=== PATIENT | male | born 1965 | race Caucasian/White ===

== ENCOUNTER 2024-07-13 19:54 | Emergency (ER) | payer MEDICAID ==
[2024-07-13] MEDS ORDERED: Sodium Chloride 0.9% 10 ML Syringe FLUSH PRN (20:09)
[2024-07-13] MEDS: Morphine 4 MG/ML VIAL IVPUSH ONE (20:24)
[2024-07-13] MEDS: Sodium Chloride 0.9% 1,000 ML IV SCH (20:26)
[2024-07-13] MEDS ORDERED: Naloxone 0.4 MG/ML SDV IVPUSH PRN (20:36)
[2024-07-13 20:44] LABS: BASOPHILS ABSOLUTE AUTO 0.1 x10-3/uL (0.0-0.3); BASOPHILS PERCENT AUTO 1.1 % (0.3-3.8); EOSINOPHILS ABSOLUTE AUTO 0.4 x10-3/uL (0.0-0.6); EOSINOPHILS PERCENT AUTO 7.7 % (0.1-6.8); HEMOGLOBIN 13.5 g/dL (12.9-17.7); LYMPHOCYTES ABSOLUTE AUTO 1.4 x10-3/uL (0.5-4.5); LYMPHOCYTES PERCENT AUTO 26.8 % (15.8-45.3); MEAN CORPUSCULAR HEMOGLOBIN 29.4 pg (27.0-33.3); MEAN CORPUSCULAR HGB CONC 33.7 g/dL (28.7-35.3); MEAN CORPUSCULAR VOLUME 87.2 fL (80.8-98.7); MEAN PLATELET VOLUME 9.3 fL (6.7-11.0); MONOCYTES ABSOLUTE AUTO 0.5 x10-3/uL (0.0-1.2); MONOCYTES PERCENT AUTO 8.8 % (5.5-15.2); NEUTROPHILS PERCENT AUTO 55.6 % (40.3-71.8); PLATELET COUNT,PLT 159 x10(3)uL (117-477); RED BLOOD CELL COUNT 4.59 x10(6)uL (3.90-5.90); WHITE BLOOD CELL COUNT,WBC 5.4 x10-3/uL (3.2-10.1)
[2024-07-13] MEDS: Ondansetron 4 MG/2 ML SDV IVPUSH ONE (20:45)
[2024-07-13 20:47] LABS: BLOOD UREA NITROGEN,BUN 9 mg/dL (7-18); BUN/CREATININE RATIO 8.2 (9-20); CALCIUM 9.7 mg/dL (8.6-10.2); CARBON DIOXIDE,CO2 26 mmol/L (21-32); CHLORIDE,CL 98 mmol/L (100-110); CREATININE 1.1 mg/dL (0.70-1.30); ESTIMATED GFR 77 mL/min (>60); GLUCOSE RANDOM 201 mg/dL (80-116); POTASSIUM,K 3.7 mmol/L (3.5-5.3); SODIUM,NA 135 mmol/L (135-145)
[2024-07-13] MEDS: HYDROmorphone 2 MG/ML SDV IVPUSH ONE (20:47)
[2024-07-13 20:53] LABS: A/G RATIO 0.8; ALANINE AMINOTRANSFERASE,ALT 29 U/L (12-36); ALBUMIN 3.8 g/dL (3.2-4.6); ALKALINE PHOSPHATASE 95 IU/L (56-112); ASPARTATE AMNIOTRANSFERASE,AST 30 IU/L (5-25); BILIRUBIN TOTAL 0.8 mg/dL (0.1-1.3); PROTEIN TOTAL,TP 8.7 g/dL (6.0-8.0)
[2024-07-13] MEDS: Iopamidol 755 Mg/ML 100 ML Bottle IV SCH (21:13)
[2024-07-13 21:17] LABS: BILIRUBIN,URINE NEGATIVE (NEGATIVE); GLUCOSE,URINE NORMAL (NORMAL); KETONES,URINE NEGATIVE (NEGATIVE); LEUKOCYTE ESTERASE,URINE NEGATIVE (NEGATIVE); NITRITE,URINE NEGATIVE (NEGATIVE); OCCULT BLOOD,URINE NEGATIVE (NEGATIVE); PROTEIN,URINE NEGATIVE (NEGATIVE); UROBILINOGEN,URINE NORMAL (NEGATIVE)
[2024-07-13 21:25] LABS: COLOR,URINE YELLOW (YELLOW)
[2024-07-13 21:26] LABS: APPEARANCE,URINE CLEAR (CLEAR)
== END 2024-07-13 22:20 | disposition home or self-care (01) ==
LOC: FB.ED 19:54
DX: K21.9 Gastro-esophageal reflux disease without esophagitis (principal); F17.210 Nicotine dependence, cigarettes, uncomplicated; Z88.1 Allergy status to other antibiotic agents; Z88.0 Allergy status to penicillin; Z88.5 Allergy status to narcotic agent; Z88.8 Allergy status to other drugs, medicaments and biological substances; Z79.899 Other long term (current) drug therapy
CPT/HCPCS: 36415; 74177; 80053; 80307; 81003; 83690; 85025; 96361; 96374; 96375; 99284; 99284-25; J1171; J2270; J2405; J7030; Q9967

== ENCOUNTER 2024-10-18 23:28 | Emergency (ER) | payer MEDICAID ==
[2024-10-19] MEDS ORDERED: Ketorolac 30 MG/ML SDV IVPUSH ONE (00:28)
[2024-10-19] MEDS ORDERED: diphenhydrAMINE 50 MG/ML SDV IVPUSH ONE (00:30)
[2024-10-19 00:53] LABS: BASOPHILS ABSOLUTE AUTO 0.1 x10-3/uL (0.0-0.3); BASOPHILS PERCENT AUTO 1.5 % (0.3-3.8); EOSINOPHILS ABSOLUTE AUTO 0.2 x10-3/uL (0.0-0.6); EOSINOPHILS PERCENT AUTO 7.1 % (0.1-6.8); HEMATOCRIT 31.7 % (38.3-50.1); HEMOGLOBIN 10.7 g/dL (12.9-17.7); LYMPHOCYTES ABSOLUTE AUTO 1.2 x10-3/uL (0.5-4.5); LYMPHOCYTES PERCENT AUTO 33.4 % (15.8-45.3); MEAN CORPUSCULAR HEMOGLOBIN 28.5 pg (27.0-33.3); MEAN CORPUSCULAR HGB CONC 33.8 g/dL (28.7-35.3); MEAN CORPUSCULAR VOLUME 84.2 fL (80.8-98.7); MEAN PLATELET VOLUME 8.9 fL (6.7-11.0); MONOCYTES ABSOLUTE AUTO 0.4 x10-3/uL (0.0-1.2); NEUTROPHILS ABSOLUTE AUTO 1.6 x10-3/uL (1.7-6.9); PLATELET COUNT,PLT 98 x10(3)uL (117-477); RED CELL DISTRIBUTION WIDTH 16.5 % (12.4-15.0); WHITE BLOOD CELL COUNT,WBC 3.5 x10-3/uL (3.2-10.1)
[2024-10-19 00:56] LABS: BLOOD UREA NITROGEN,BUN 10 mg/dL (7-18); CALCIUM 9.5 mg/dL (8.6-10.2); CARBON DIOXIDE,CO2 27 mmol/L (21-32); CHLORIDE,CL 103 mmol/L (100-110); EST CRCL DRUG DOSING (CG) 88.78 mL/min; ESTIMATED GFR 86 mL/min (>60); GLUCOSE RANDOM 136 mg/dL (80-116); POTASSIUM,K 3.6 mmol/L (3.5-5.3); SODIUM,NA 136 mmol/L (135-145)
[2024-10-19 00:59] LABS: LIPASE 66 U/L (16-77)
[2024-10-19 01:01] LABS: ALANINE AMINOTRANSFERASE,ALT 26 U/L (12-36); ALBUMIN 3.6 g/dL (3.2-4.6); ALKALINE PHOSPHATASE 98 IU/L (56-112); ASPARTATE AMNIOTRANSFERASE,AST 19 IU/L (5-25); BILIRUBIN TOTAL 0.4 mg/dL (0.1-1.3); PROTEIN TOTAL,TP 7.4 g/dL (6.0-8.0)
[2024-10-19 01:02] LABS: C-REACTIVE PROTEIN < 0.50 mg/dL (<0.50)
[2024-10-19 01:04] LABS: RED BLOOD CELL COUNT 3.76 x10(6)uL (3.90-5.90)
[2024-10-19 01:34] LABS: BILIRUBIN,URINE NEGATIVE (NEGATIVE); COLOR,URINE YELLOW (YELLOW); GLUCOSE,URINE NORMAL (NORMAL); KETONES,URINE NEGATIVE (NEGATIVE); LEUKOCYTE ESTERASE,URINE NEGATIVE (NEGATIVE); NITRITE,URINE NEGATIVE (NEGATIVE); OCCULT BLOOD,URINE NEGATIVE (NEGATIVE); PROTEIN,URINE NEGATIVE (NEGATIVE); UROBILINOGEN,URINE NORMAL (NEGATIVE)
[2024-10-19 01:35] LABS: APPEARANCE,URINE CLEAR (CLEAR); BACTERIA,URINE RARE (NS); RBC,URINE 0-5 (0-5); SQUAMOUS EPITHELIAL CELLS,UR RARE (NS,R,O); WBC,URINE 0-5 (0-5)
[2024-10-19] MEDS: Ondansetron 4 MG/2 ML SDV IVPUSH ONE (01:35)
[2024-10-19] MEDS: Sodium Chloride 0.9% 1,000 ML IV ONE (01:35)
[2024-10-19] MEDS ORDERED: Magnesium Sulf 1 GM/2 mL SDV 1 GM in Sodium Chloride 0.9% 50 ML IV ONE (01:35)
[2024-10-19] MEDS: diphenhydrAMINE 50 MG/ML SDV IVPUSH ONE (01:36)
[2024-10-19] MEDS: Metoclopramide 10 MG/2 ML SDV IVPUSH ONE (01:37)
[2024-10-19] MEDS: Magnesium Sulfate 2 GM/50 mL 50 ML IV ONE (02:16)
[2024-10-19] MEDS: Alum Hydroxide/Mag Hydroxide 15 ML, Lidocaine 2% 15 ML PO ONE (02:16)
[2024-10-19] MEDS: Aluminum Hydroxide/Magnesium Hydroxide Susp 30 ML Cup PO ONE (02:41)
== END 2024-10-19 04:20 | disposition home or self-care (01) ==
LOC: FB.ED 23:28
DX: K21.9 Gastro-esophageal reflux disease without esophagitis (principal); D64.9 Anemia, unspecified; D69.6 Thrombocytopenia, unspecified; E83.42 Hypomagnesemia; F17.210 Nicotine dependence, cigarettes, uncomplicated; Z88.1 Allergy status to other antibiotic agents; Z88.6 Allergy status to analgesic agent; Z88.0 Allergy status to penicillin; Z88.5 Allergy status to narcotic agent; Z79.899 Other long term (current) drug therapy
CPT/HCPCS: 36415; 80053; 81001; 82272; 83690; 83735; 85025; 86140; 96361; 96365; 96375; 99284; A9270; J1200; J2405; J2765; J3475; J7030